=== PATIENT | female | born 1970 | race Caucasian/White ===

== ENCOUNTER 2016-05-05 20:41 | Emergency (ER) | payer BC ==
[~2016-05-05] VITALS: Ht 165.1 cm; Wt 99.5 kg
[~2016-05-05 20:41] MED LIST: 00186-0370-20 IH; AMBIEN 10MG10 MG PO; BENTYL 10MG10 MG/CAP PO; CARDIZEM 30MG T30 MG PO; CARDIZEM CD 24240 MG PO; CIPRO 500MG TA500 MG PO; CLIMARA 0.1 PATCH.WK TD; CYMBALTA 60MG60 MG PO; DIABETA 5MG5 MG/TAB; DIFLUCAN150 MG PO; GLUCOPHAGE500 MG/TAB PO; GLUCOTROL XL10 MG PO; HCTZ12.5TAB PO; IMODIUM 2MG CAPS2 MG PO; JARDIANCE10 PO; KLONOPIN 0.5MG0.5 MG PO; LANTUS100 U/ML SC; LASIX 20MG TABL20 MG PO; LEVEMIR100 U/ML SQ; MOTRIN 600600 MG/TAB PO; NATURAL IRON65 MG PO; NEURONTIN300 MG/CAP PO; NEXIUM 40MG40 MG; NORCO 325 MG-51 TAB PO; PERCOCET 325 MG1 TA2 PO; PHENERGAN 25 TA25 MG PO; PRAVACHOL 20MG20 MG PO; PREDNISONE20 MG PO; PRINIVIL5 MG; PROTONIX 40MG T40 MG PO; PROVENTIL0.09 MG/A1 IH; SINGULAIR 110 MG/TAB PO; ULTRAM 50MG TAB50 MG PO; VICTOZA6 MG/ML SC; VITAMIN C500 MG PO; VITAMIN D31000 IU PO; VITAMIN D32000 I1 PO; XALATAN EYE DROPS OS; ZYRTEC 10MG10 MG PO
[2016-05-05 20:45] VITALS: BP 119/88; TEMP 97.7
[2016-05-05] MEDS ORDERED: NORCO 325 MG-51 TAB PO (23:03)
[2016-05-05 23:18] VITALS: PULSE 88
== END 2016-05-05 23:19 | disposition home or self-care (01) ==
LOC: COL.ER 20:41
DX: M25.511 Pain in right shoulder (principal); W01.0XXA Fall on same level from slipping, tripping and stumbling without subsequent striking against object, initial encounter
CPT/HCPCS: J1170

== ENCOUNTER → 2016-05-07 | Outpatient (CLI) | payer BC | LOC: SUN.DIA 14:00 | DX: E11.65 Type 2 diabetes mellitus with hyperglycemia (principal); E66.9 Obesity, unspecified; Z68.36 Body mass index [BMI] 36.0-36.9, adult; Z71.3 Dietary counseling and surveillance; E78.5 Hyperlipidemia, unspecified; Z79.4 Long term (current) use of insulin; Z79.84 Long term (current) use of oral hypoglycemic drugs; Z87.891 Personal history of nicotine dependence | CPT/HCPCS: G0108 ==

== ENCOUNTER → 2016-06-24 | Outpatient (CLI) | payer BC | LOC: MHCPAIN 08:39 | DX: G89.29 Other chronic pain (principal); M47.814 Spondylosis without myelopathy or radiculopathy, thoracic region; M25.511 Pain in right shoulder | CPT/HCPCS: G0463 ==

== ENCOUNTER 2016-10-17 23:10 | Emergency (ER) | payer BC ==
[~2016-10-17] VITALS: Ht 165.1 cm; Wt 101.4 kg
[2016-10-17 23:19] VITALS: TEMP 98.1
[2016-10-18 02:57] VITALS: BP 122/78; PULSE 78
== END 2016-10-18 03:00 | disposition home or self-care (01) ==
LOC: COL.ER 23:10
DX: S20.211A Contusion of right front wall of thorax, initial encounter (principal); X58.XXXA Exposure to other specified factors, initial encounter; I10 Essential (primary) hypertension; E11.9 Type 2 diabetes mellitus without complications; Z79.4 Long term (current) use of insulin

== ENCOUNTER 2016-11-21 18:38 | Emergency (ER) | payer BC ==
[~2016-11-21] VITALS: Ht 165.1 cm; Wt 99.5 kg
[2016-11-21 18:40] VITALS: TEMP 97.7
[2016-11-21 19:32] LABS: BASO # 0.1 (0.0-0.2); BASO % 0.6 % (0.0-2.0); EOS # 0.1 (0.0-0.7); GRAN # 6.1 (1.4-6.5); GRAN % 59.1 % (42.2-75.2); HEMATOCRIT 46.6 % (37.0-47.0); HEMOGLOBIN 15.3 g/dl (12.5-16.0); LYMPH # 3.2 (1.2-3.4); LYMPH % 30.8 % (20.0-51.0); MEAN CELL VOLUME 81 fl (80.0-100.0); MEAN CORPUSCULAR HEMOGLOBIN 27 pg (27.0-31.0); MEAN CORPUSCULAR HGB CONC 33 g/dl (33.0-37.0); MEAN PLATELET VOLUME 10.1 fl (7.4-10.4); MONO # 0.8 (0.1-0.6); PLATELET COUNT 283 K/mm3 (130-400); RED BLOOD COUNT 5.75 M/mm3 (4.10-5.30); REDCELL DISTRIBUTION WIDTH-CV 14.1 % (11.5-14.5); WHITE BLOOD COUNT 10.4 K/mm3 (4.8-10.8)
[2016-11-21 19:39] LABS: ADJUSTED CALCIUM 8.8 mg/dL (8.4-10.2); ALANINE AMINOTRANSFERASE 32 U/L (9-52); ALBUMIN 5.2 gm/dL (3.5-5.0); ALKALINE PHOSPHATASE 137 U/L (50-136); ANION GAP 16 mmol/L (7-16); BILIRUBIN,TOTAL 1.1 mg/dL (0.0-1.0); BLOOD UREA NITROGEN 23 mg/dL (7-17); CALCIUM 9.8 mg/dL (8.4-10.2); CARBON DIOXIDE 26 mmol/L (22-30); CHLORIDE 91 mmol/L (98-107); CREATINE KINASE 43 U/L (30-135); CREATININE, serum 0.67 mg/dL (0.52-1.25); GLUCOSE 334 mg/dL (74-106); MAGNESIUM 2.4 mg/dL (1.6-2.3); POTASSIUM 4.4 mmol/L (3.4-5.0); SODIUM 133 mmol/L (137-145); TOTAL PROTEIN 9.4 gm/dL (6.4-8.2)
[2016-11-21 19:48] LABS: TROPONIN-I < 0.012 ng/mL (0.000-0.034)
[2016-11-21 20:45] VITALS: BP 125/81; PULSE 78
== END 2016-11-21 21:00 | disposition home or self-care (01) ==
LOC: COL.ER 18:38
PROVIDERS: Emergency Medicine
DX: R51 Headache (principal); R25.2 Cramp and spasm; E11.9 Type 2 diabetes mellitus without complications; I10 Essential (primary) hypertension; G43.909 Migraine, unspecified, not intractable, without status migrainosus; J45.909 Unspecified asthma, uncomplicated; Z79.4 Long term (current) use of insulin
CPT/HCPCS: J1885; J3480; J7030

== ENCOUNTER 2017-09-05 16:15 | Emergency (ER) | payer SELFPAY ==
[~2017-09-05] VITALS: Ht 165.1 cm; Wt 100.0 kg
[2017-09-05 16:19] VITALS: BP 121/77; PULSE 90; TEMP 97
[2017-09-05] MEDS ORDERED: CARDIZEM 30MG T30 MG PO (16:48)
[2017-09-05] MEDS ORDERED: NEXIUM 20MG20 MG PO (16:49)
[2017-09-05] MEDS ORDERED: ADVIL200 MG PO (16:50)
[2017-09-05] MEDS ORDERED: JANUMET 1000 MG1 TA1 PO (16:51)
[2017-09-05] MEDS ORDERED: FLEXERIL 1010 MG/TAB PO (16:52)
[2017-09-05 17:15] LABS: CALCIUM 9.6 mg/dL (8.4-10.2); CREATININE, serum 0.65 mg/dL (0.52-1.25); POTASSIUM 4.3 mmol/L (3.4-5.0)
== END 2017-09-05 17:59 | disposition home or self-care (01) ==
LOC: COL.ER 16:15
PROVIDERS: Physician Assistant
DX: M54.12 Radiculopathy, cervical region (principal); E11.9 Type 2 diabetes mellitus without complications; E78.5 Hyperlipidemia, unspecified; Z79.84 Long term (current) use of oral hypoglycemic drugs; Z98.51 Tubal ligation status
CPT/HCPCS: J2360

== ENCOUNTER 2018-04-23 07:01 | Day surgery (SDC) | payer BC ==
[~2018-04-23] VITALS: Ht 165.1 cm; Wt 101.4 kg
[2018-04-23] VITALS (11 sets, daily range): BP systolic 109–126; BP diastolic 68–91; PULSE 94–118; TEMP 97–98.5
[~2018-04-23 07:01] MED LIST changes: +ADVIL200 MG PO; +FLEXERIL 1010 MG/TAB PO; +JANUMET 1000 MG1 TA1 PO; +NEXIUM 20MG20 MG PO
[2018-04-23] MEDS ORDERED: CARDIZEM CD 24240 MG PO (07:44)
[2018-04-23] MEDS ORDERED: NEURONTIN600 MG/TAB PO (07:45)
[2018-04-23] MEDS ORDERED: PRIL40 PO (07:45)
[2018-04-23] MEDS ORDERED: OZEMPIC1 MG/0.75 SQ (07:48)
[2018-04-23] MEDS ORDERED: JARDIANCE25 PO (07:49)
[2018-04-23] MEDS ORDERED: CYMBALTA 60MG60 MG PO (07:50)
[2018-04-23] MEDS ORDERED: ALDACTONE50 MG PO (07:51)
[2018-04-23] MEDS ORDERED: ZETIA 10MG TAB10 MG PO (07:52)
[2018-04-23] MEDS ORDERED: PRAVACHOL80 MG PO (07:54)
[2018-04-23] MEDS ORDERED: TAMBOCOR50 MG PO (07:54)
[2018-04-23] MEDS ORDERED: ESTRADERM0.1 MG/24 (07:55)
[2018-04-23] MEDS ORDERED: ZANAFLEX 4MG TAB4 MG PO (07:56)
[2018-04-23] MEDS ORDERED: PERCOCET 325 MG1 TA2 PO (07:57)
[2018-04-23] MEDS ORDERED: VALTREX1 GM PO (07:57)
[2018-04-23] MEDS ORDERED: REQUIP 0.5MG0.5 MG PO (07:58)
[2018-04-23] MEDS ORDERED: PROAIR HFA0.09 MG/AC IH (07:58)
[2018-04-24 03:28] VITALS: BP 118/75; PULSE 96; TEMP 98.2
[2018-04-24 07:41] VITALS: BP 121/78; PULSE 92; TEMP 97.7
== END 2018-04-24 10:35 | disposition home or self-care (01) ==
LOC: SDCO 07:01 → SURG 11:00 → SDCO 04-24 10:35
DX: G89.29 Other chronic pain (principal); R10.31 Right lower quadrant pain; K66.0 Peritoneal adhesions (postprocedural) (postinfection); E11.9 Type 2 diabetes mellitus without complications; E11.41 Type 2 diabetes mellitus with diabetic mononeuropathy; G58.8 Other specified mononeuropathies; Z79.84 Long term (current) use of oral hypoglycemic drugs; Z79.899 Other long term (current) drug therapy; I10 Essential (primary) hypertension; G47.33 Obstructive sleep apnea (adult) (pediatric); M79.7 Fibromyalgia; G25.81 Restless legs syndrome; R00.0 Tachycardia, unspecified; F32.9 Major depressive disorder, single episode, unspecified; G43.909 Migraine, unspecified, not intractable, without status migrainosus; K21.9 Gastro-esophageal reflux disease without esophagitis; H40.9 Unspecified glaucoma
CPT/HCPCS: OP; J0690; J1100; J1170; J1885; J2405; J2704; J3010; J7030

== ENCOUNTER 2018-05-05 17:40 | Emergency (ER) | payer BC ==
[~2018-05-05] VITALS: Ht 165.1 cm; Wt 95.0 kg
[~2018-05-05 17:40] MED LIST changes: +ALDACTONE50 MG PO; +ESTRADERM0.1 MG/24; +JARDIANCE25 PO; +NEURONTIN600 MG/TAB PO; +OZEMPIC1 MG/0.75 SQ; +PRAVACHOL80 MG PO; +PRIL40 PO; +PROAIR HFA0.09 MG/AC IH; +REQUIP 0.5MG0.5 MG PO; +TAMBOCOR50 MG PO; +VALTREX1 GM PO; +ZANAFLEX 4MG TAB4 MG PO; +ZETIA 10MG TAB10 MG PO
[2018-05-05 17:50] VITALS: TEMP 97.2
[2018-05-05 18:12] LABS: COLLECTION METHOD CLEAN CATCH
[2018-05-05 18:23] LABS: MUCOUS Present /lpf; PH 5 (5-8); SQUAMOUS EPITHELIAL 0-2 /hpf; URINE APPEARANCE Clear; URINE BACTERIA None Seen /hpf; URINE BILIRUBIN Negative (NEGATIVE); URINE BLOOD Negative (NEGATIVE); URINE COLOR Straw; URINE GLUCOSE 3+ (NEGATIVE); URINE KETONE Negative (NEGATIVE); URINE LEUKOCYTE ESTERASE Negative (NEGATIVE); URINE NITRATE Negative (NEGATIVE); URINE PROTEIN(semi-quant) Negative (NEGATIVE); URINE RBC None Seen /hpf; URINE UROBILINOGEN Negative (NEGATIVE)
[2018-05-05 18:31] LABS: BASO % 0.5 % (0.0-2.0); EOS # 0.2 (0.0-0.7); EOS % 2.1 % (0-4.0); GRAN # 4.1 (1.4-6.5); GRAN % 53.4 % (42.2-75.2); HEMATOCRIT 43.9 % (37.0-47.0); HEMOGLOBIN 14.2 g/dl (12.5-16.0); LYMPH # 2.8 (1.2-3.4); LYMPH % 36.4 % (20.0-51.0); MEAN CELL VOLUME 86 fl (80.0-100.0); MEAN CORPUSCULAR HEMOGLOBIN 28 pg (27.0-31.0); MEAN CORPUSCULAR HGB CONC 32 g/dl (33.0-37.0); MEAN PLATELET VOLUME 9.8 fl (7.4-10.4); MONO # 0.6 (0.1-0.6); MONO % 7.2 % (1.7-9.3); PLATELET COUNT 259 K/mm3 (130-400); REDCELL DISTRIBUTION WIDTH-CV 12.7 % (11.5-14.5)
[2018-05-05] MEDS ORDERED: LANTUS100 U/ML SQ (18:43)
[2018-05-05 18:44] LABS: ALBUMIN 4.4 gm/dL (3.5-5.0); BILIRUBIN,TOTAL 0.6 mg/dL (0.0-1.0); C-REACTIVE PROTEIN 0.9 mg/dL (0.0-0.9); CALCIUM 9.8 mg/dL (8.4-10.2); CREATININE, serum 0.55 mg/dL (0.52-1.25); TOTAL PROTEIN 7.9 gm/dL (6.4-8.2)
[2018-05-05] MEDS ORDERED: TOBRADEX EYE DRO5 ML OP (18:44)
[2018-05-05] MEDS ORDERED: PROTONIX 40MG T40 MG PO (18:45)
[2018-05-05] MEDS ORDERED: CLIMARA 0.1 PATCH.WK TD (18:46)
[2018-05-05] MEDS ORDERED: CEPHALEXIN500 M1 PO (19:51)
[2018-05-05 20:10] VITALS: BP 116/79; PULSE 83
== END 2018-05-05 21:00 | disposition home or self-care (01) ==
LOC: COL.ER 17:40
PROVIDERS: Emergency Medicine
DX: R59.1 Generalized enlarged lymph nodes (principal); R10.30 Lower abdominal pain, unspecified; I10 Essential (primary) hypertension; F32.9 Major depressive disorder, single episode, unspecified; J45.909 Unspecified asthma, uncomplicated; E11.9 Type 2 diabetes mellitus without complications; Z90.49 Acquired absence of other specified parts of digestive tract; Z90.710 Acquired absence of both cervix and uterus; Z98.890 Other specified postprocedural states; Z79.84 Long term (current) use of oral hypoglycemic drugs
CPT/HCPCS: J1170; J2405; J7030; Q9967

== ENCOUNTER 2019-03-06 14:40 | Emergency (ER) | payer BC ==
[~2019-03-06] VITALS: Ht 165.1 cm; Wt 98.6 kg
[~2019-03-06 14:40] MED LIST changes: +CEPHALEXIN500 M1 PO; +LANTUS100 U/ML SQ; +TOBRADEX EYE DRO5 ML OP
[2019-03-06 14:52] VITALS: BP 116/76; TEMP 97
[2019-03-06 16:50] VITALS: PULSE 85
== END 2019-03-06 16:50 | disposition home or self-care (01) ==
LOC: COL.ER 14:40
DX: S06.0X0A Concussion without loss of consciousness, initial encounter (principal); K21.9 Gastro-esophageal reflux disease without esophagitis; E11.9 Type 2 diabetes mellitus without complications; J45.909 Unspecified asthma, uncomplicated; Z79.4 Long term (current) use of insulin; Z87.891 Personal history of nicotine dependence; W22.8XXA Striking against or struck by other objects, initial encounter; Y92.009 Unspecified place in unspecified non-institutional (private) residence as the place of occurrence of the external cause
CPT/HCPCS: J1885

== ENCOUNTER 2022-01-05 17:11 | Emergency (ER) | payer OTHER, MEDICAID ==
[~2022-01-05] VITALS: Ht 165.1 cm; Wt 100.0 kg
[2022-01-05 17:27] VITALS: TEMP 97.7
[2022-01-05 18:59] LABS: BASO % 0.6 % (0.0-2.0); EOS # 0.1 K/mm3 (0.0-0.7); EOS % 1.6 % (0.0-4.0); GRAN # 3.2 K/mm3 (1.4-6.5); GRAN % 46.8 % (42.2-75.2); HEMATOCRIT 41.7 % (37.0-47.0); HEMOGLOBIN 14.2 g/dl (12.5-16.0); LYMPH % 43.4 % (20.0-51.0); MEAN CELL VOLUME 82 fl (80.0-100.0); MEAN CORPUSCULAR HEMOGLOBIN 28 pg (27-31); MEAN CORPUSCULAR HGB CONC 34 g/dl (33.0-37.0); MONO # 0.5 K/mm3 (0.1-0.6); MONO % 7.3 % (1.7-9.3); PLATELET COUNT 253 K/mm3 (130-400); REDCELL DISTRIBUTION WIDTH-CV 12.5 % (11.5-14.5)
[2022-01-05 19:04] LABS: COLLECTION METHOD CLEAN CATCH
[2022-01-05 19:12] LABS: PH 5.5 (5.0-8.5); SQUAMOUS EPITHELIAL 0-2 /hpf (0-10); URINE APPEARANCE Clear (CLEAR/HAZY); URINE BACTERIA None Seen /hpf (NONE SEEN); URINE COLOR Yellow (YELLOW); URINE GLUCOSE 2+ (NEGATIVE); URINE KETONE 1+ (NEGATIVE); URINE PROTEIN(semi-quant) Negative (NEGATIVE); URINE RBC None Seen /hpf (0-2)
[2022-01-05 19:13] LABS: URINE BLOOD Negative (NEGATIVE); URINE NITRATE Negative (NEGATIVE); URINE UROBILINOGEN 0.2 E.U/dL (0.2-1.0)
[2022-01-05 19:20] LABS: BILIRUBIN,TOTAL 0.5 mg/dL (0.2-1.2); CALCIUM 9.1 mg/dL (8.4-10.2); CREATININE, serum 0.78 mg/dL (0.57-1.11); POTASSIUM 4.1 mmol/L (3.5-4.5); TOTAL PROTEIN 7.2 gm/dL (6.2-8.1)
[2022-01-05] MEDS ORDERED: CEPHALEXIN500 M1 PO (21:10)
[2022-01-05 21:20] VITALS: BP 110/61; PULSE 80
== END 2022-01-05 21:25 | disposition home or self-care (01) ==
LOC: COL.ER 17:11
PROVIDERS: Emergency Medicine
DX: L03.311 Cellulitis of abdominal wall (principal); E11.9 Type 2 diabetes mellitus without complications; Z90.49 Acquired absence of other specified parts of digestive tract; Z88.2 Allergy status to sulfonamides; Z32.02 Encounter for pregnancy test, result negative; Z28.311 Partially vaccinated for COVID-19; Z79.4 Long term (current) use of insulin
CPT/HCPCS: J1170; J2270; J2405; J7030; Q9967